=== PATIENT | female | born 1970 | race Caucasian/White ===

== ENCOUNTER 2020-10-30 14:07 | Emergency (ER) | payer BC, SELFPAY ==
[2020-10-30 14:26] VITALS: BP 136/66; PULSE 72; RESP 18; TEMP 36.9; O2SAT 98
--- NOTE | 2020-10-30 14:32 | DI.RAD.S_ITS ---
PROCEDURE: XR ANKLE LT MIN 3V INDICATIONS: fall TECHNIQUE: 3 views of the ankle were acquired. COMPARISON: None. FINDINGS: Bones: No fractures or dislocations. Ankle mortise is normally aligned. No suspicious bony lesions. Soft tissues: No tibiotalar joint effusion. Achilles tendon appears normal. IMPRESSION: Unremarkable left ankle radiographs Dictated by: Yoseph Jones M.D. on 10/30/2020 at 14:38 Approved by: Yoseph Jones M.D. on 10/30/2020 at 14:39
--- NOTE | 2020-10-30 16:58 | ED.LOWEXIN ---
HPI - Extremity Injury (Lower) General Chief Complaint: Extremity Injury, Lower Stated Complaint: fell and twisted ankle today Time Seen by Provider: 10/30/20 16:58 Source: patient Mode of arrival: Wheelchair History of Present Illness HPI Narrative: Otherwise healthy 50-year-old woman visiting the area on vacation, exploring [place] beach is and slipped and fell with an inversion type injury to the left ankle. It is swollen and tender to walk on and she comes in for further evaluation. Additional complaints include an abrasion to the right knee and she is noticing as she has been sitting a period of time that she is feeling more stiff in the low back the arms the hand and her neck but has no overt injuries. Related Data Previous Rx's Medication Instructions Recorded oxycodone-acetaminophen 5 mg-325 1 tab PO Q6H PRN #7 tab 10/30/20 mg tablet Allergies Allergy/AdvReac Type Severity Reaction Status Date / Time No Known Drug Allergies Allergy Verified 10/30/20 14:31 Review of Systems Review of Systems Narrative: Pertinent positive and negative findings as per HPI Remainder of review of systems is otherwise unremarkable for Constitutional: Fevers, chills, weakness ENT: No sore throat, neck pain, ear pain CV: Chest pain, palpitations, Respiratory: Cough, wheeze, dyspnea GI: Nausea, vomiting, diarrhea, Exam Narrative Exam Narrative: General: Alert appropriate in no acute distress Respiratory: Able to speak in full sentences, no obvious respiratory distress Skin: No obvious rashes, warm and dry Neurologic: Grossly intact no obvious asymmetries or abnormalities Psych: appropriate insight and affect, cooperative Extremity: Right knee with minor abrasion over the patella with full range of motion and neurovascularly intact. Left ankle with swelling to the lateral malleolus tenderness on the medial malleolus. Decreased range of motion secondary to pain. Neurovascularly intact. No significant abrasions or contusions to the hands elbows or feet. Initial Vital Signs Initial Vital Signs: Vital Signs Temperature 98.5 F 10/30/20 14:26 Pulse Rate 72 10/30/20 14:26 Respiratory Rate 18 10/30/20 14:26 Blood Pressure 136/66 10/30/20 14:26 Pulse Oximetry 98 10/30/20 14:26 Procedures Orthopedic Splinting/Casting Left ankle: Time of procedure: 17:17 Side: left Lower Extremity Injury Location: ankle Lower Extremity Immobilizer: stirrup splint Post splinting neuro exam: intact Post splinting vascular exam: intact Placed by: Provider Course Orders Ordered: ED Orders 10/30/20 14:32 XR ankle LT min 3V Stat Discontinued Medications Acetaminophen (Acetaminophen 325 Mg Tablet) 325 mg PO NOW ONE Stop: 10/30/20 17:09 Ibuprofen (Ibuprofen 400 Mg Tablet) 400 mg PO NOW ONE Stop: 10/30/20 17:09 Vital Signs Vital signs: Vital Signs - 8 hr 10/30/20 14:26 Temperature 98.5 F Pulse Rate 72 Respiratory Rate 18 Blood Pressure 136/66 Pulse Oximetry 98 MDM - Extremity Injury (Lower) Imaging Data xr ankle: Radiologist's Impression: FINDINGS: Bones: No fractures or dislocations. Ankle mortise is normally aligned. No suspicious bony lesions. Soft tissues: No tibiotalar joint effusion. Achilles tendon appears normal. IMPRESSION: Unremarkable left ankle radiographs Dictated by: Yoseph Jones M.D. on 10/30/2020 at 14:38 MDM Narrative Medical decision making narrative: 50-year-old woman no significant medical history slipped [place] fell [place] beach inversion injury of the left ankle abrasion to the right knee minor contusion to the right hand but no significant concern for bony injury. Splint is placed on the left ankle after x-rays are returned negative. Anticipatory guidance regarding healing, crutches, expected levels of pain tomorrow and instructions on when to return to the emergency room. She is safe for home discharge Discharge Plan Departure Patient Disposition: Home Clinical Impression: Ankle sprain and strain Abrasion of knee Qualifiers: Encounter type: initial encounter Laterality: right Qualified Code(s): S80.211A - Abrasion, right knee, initial encounter Fall Qualifiers: Encounter type: initial encounter Qualified Code(s): W19.XXXA - Unspecified fall, initial encounter Instructions: DI for Ankle Sprain Activity Restrictions/Additional Instructions: Thank you for coming in today I am sorry you got to experience how hard the rocks on the beach can be when you fall You did not break your ankle. It is sprained and it is going to hurt more in the next 24-48 hours. Please use the crutches that you have at home for support and stability as needed. It is okay to walk on the ankle, you are not going to make the injury worse but it is going to be tender. Please make sure you clean the a abrasion on your right knee and apply antibiotic ointment when you get home. I would expect that you are going to find all sorts of other spots that are achy and sore over the next 24 hours. Using 400 mg of ibuprofen (2 [id number] pills) and 1 Tylenol every 6 hours can be very helpful in controlling pain. For severe pain using 400 mg of ibuprofen and 1 Percocet can be helpful. I hope the rest of your vacation is far less eventful and that you heal up quickly. Prescriptions: New oxycodone-acetaminophen 5-325 mg tablet 1 tab PO Q6H PRN (Reason: pain) Qty: 7 RF: 0
== END 2020-10-30 17:18 | disposition home or self-care (01) ==
PROVIDERS: Emergency Provider Emergency Medicine
DX: S93.402A Sprain of unspecified ligament of left ankle, initial encounter (principal); S80.211A Abrasion, right knee, initial encounter; W01.0XXA Fall on same level from slipping, tripping and stumbling without subsequent striking against object, initial encounter
CPT/HCPCS: 73610; 99283